=== PATIENT | female | born 1980 | race Two or more races ===

== ENCOUNTER 2016-10-06 06:47 | Inpatient (IN) | payer SELFPAY ==
[~2016-10-06] VITALS: Ht 175.3 cm; Wt 93.9 kg
[2016-10-06] MEDS ORDERED: IV RINGERS,LACTATED 1000ML 1,000 ML IV SCH ×2 (07:12→07:23)
[2016-10-06] MEDS ORDERED: HYDROMORPHONE 2 MG/ML VIAL. IV PRN (07:15)
[2016-10-06] MEDS ORDERED: MORPHINE SULFATE 2 MG/ML DISP.SYRIN. IV PRN (07:15)
[2016-10-06] MEDS ORDERED: ONDANSETRON PF 4 MG/2 ML VIAL. IV PRN ×2 (07:15→10:45)
[2016-10-06] MEDS ORDERED: FENTANYL PF 100 MCG/2 ML VIAL. IV PRN ×2 (07:15)
[2016-10-06] MEDS ORDERED: PROCHLORPERAZINE 10 MG/2 ML VIAL. IV PRN (07:15)
[2016-10-06] MEDS ORDERED: LIDOCAINE 1% 1 ML SYRINGE. ID PRN (07:15)
[2016-10-06] MEDS ORDERED: CITRIC ACID/SODIUM CITRATE 30 ML SOLUTION. PO ONE (08:30)
[2016-10-06 08:32] LABS: HEMATOCRIT 40.1 % (36.0-47.0); HEMOGLOBIN 13.9 g/dL (12.0-15.5); RED BLOOD COUNT 4.34 x10^6/uL (3.50-5.40); RED CELL DISTRIBUTION WIDTH 12.7 % (11.5-14.5); WHITE BLOOD COUNT 10.4 x10^3/uL (4.0-11.0)
[2016-10-06] MEDS ORDERED: ONDANSETRON PF 4 MG/2 ML VIAL. ONE (08:54)
[2016-10-06] MEDS ORDERED: FAMOTIDINE 20 MG/2 ML VIAL ONE (08:54)
[2016-10-06] MEDS ORDERED: METOCLOPRAMIDE HCL 10 MG/2 ML VIAL. ONE (08:54)
[2016-10-06] MEDS ORDERED: OXYTOCIN 10 UNIT/ML VIAL. ONE (08:55)
[2016-10-06] MEDS ORDERED: IV RINGERS,LACTATED 500ML 500 ML IV ONE (09:00)
[2016-10-06] MEDS ORDERED: IV RINGERS,LACTATED 1000ML 1,000 ML IV ONE (09:00)
[2016-10-06] MEDS ORDERED: CEFAZOLIN 2GM PREMIX 50 ML IV ONE (09:00)
[2016-10-06] MEDS ORDERED: FENTANYL PF 100 MCG/2 ML VIAL. ONE (09:01)
[2016-10-06] MEDS ORDERED: MORPHINE PF 5 MG/10 ML VIAL. ONE (09:01)
[2016-10-06 09:02] VITALS: BP 111/68
[2016-10-06] MEDS ORDERED: PHENYLEPHRINE in 0.9% NACL PF 1 MG/10 ML DISP.SYRIN. IV ONE (09:35)
[2016-10-06 09:53] LABS: BACTERIA,URINE 0 /HPF (0-FEW); BILIRUBIN,URINE NEGATIVE (NEG); GLUCOSE,URINE NEGATIVE (NEG); NITRITE,URINE NEGATIVE (NEG); PROTEIN,URINE 30 mg/dL (NEG-TRACE); RBC,URINE 0 /HPF (0-2); WBC,URINE 0 /HPF (0-4)
--- NOTE | 2016-10-06 10:35 | PDOC ---
BRIEF OPERATIVE NOTE Pre-Op Diagnosis TIUP Unknown uterine scar RLTC/S with BTL Post-Op Diagnosis Same Procedure Performed As above Surgeon Jojo Anesthesia Type: Regional Blood Loss 800cc Specimens Obtained R and L JESUS Zhao MD Oct 06, 2016 10:35
[2016-10-06] MEDS ORDERED: MMR per PROTOCOL. MC PRN (10:45)
[2016-10-06] MEDS ORDERED: OXYTOCIN 30 UNIT/500 ML PREMIX 500 ML IV PRN (10:45)
[2016-10-06] MEDS ORDERED: DIPHENHYDRAMINE ORAL ELIXIR 12.5 MG/5 ML. PO PRN (10:45)
[2016-10-06] MEDS ORDERED: MAGNESIUM HYDROXIDE 2,400 MG/30 ML ORAL.SUSP. PO PRN (10:45)
[2016-10-06] MEDS ORDERED: ZOLPIDEM 5 MG TABLET. PO PRN (10:45)
[2016-10-06] MEDS ORDERED: SIMETHICONE 80 MG TAB.CHEW PO PRN (10:45)
[2016-10-06] MEDS ORDERED: MAG HYDROX/ALUMINUM HYD/SIMETH 30 ML ORAL.SUSP PO PRN (10:45)
[2016-10-06] MEDS: IV RINGERS,LACTATED 1000ML 1,000 ML IV SCH ×2 (11:42→21:49)
[2016-10-06] MEDS: KETOROLAC TROMETHAMINE 30 MG/ML INJ. IV PRN ×2 (13:31→19:52)
[2016-10-06] MEDS: IBUPROFEN 800 MG TABLET. PO SCH ×2 (14:00→22:00)
[2016-10-06] MEDS: CEFAZOLIN SODIUM 1 GM in IV NORMAL SALINE 50ML 50 ML IV SCH ×2 (14:04→21:50)
[2016-10-06 14:30] VITALS: BP 103/49
[2016-10-06 15:15] VITALS: BP 112/69
[2016-10-06 17:30] VITALS: BP 114/61
[2016-10-06 19:30] VITALS: BP 105/53
[2016-10-06] MEDS: 0.9 % SODIUM CHLORIDE 10 ML DISP.SYRIN. IV PRN (19:53)
[2016-10-07] VITALS: BP 98/50
[2016-10-07] MEDS: KETOROLAC TROMETHAMINE 30 MG/ML INJ. IV PRN (02:24)
[2016-10-07] MEDS: 0.9 % SODIUM CHLORIDE 10 ML DISP.SYRIN. IV PRN (02:24)
[2016-10-07 04:00] VITALS: BP 95/55
[2016-10-07] MEDS: IBUPROFEN 800 MG TABLET. PO SCH ×3 (06:00→17:39)
[2016-10-07 06:09] LABS: BASO % 0 % (0-3); EOS % 1 % (0-3); HEMATOCRIT 34.7 % (36.0-47.0); HEMOGLOBIN 11.6 g/dL (12.0-15.5); LYMPH # 2.2 x10^3/uL (1.0-4.8); LYMPH % 20 % (24-48); MEAN CORPUSCULAR HEMOGLOBIN 31 pg (25-35); MEAN CORPUSCULAR HGB CONC 34 g/dL (31-37); MEAN CORPUSCULAR VOLUME 94 fL (79-100); MONO % 6 % (0-9); NEUT % 72 % (31-73); PLATELET COUNT 188 x10^3/uL (140-400); RED CELL DISTRIBUTION WIDTH 13.1 % (11.5-14.5); WHITE BLOOD COUNT 11.3 x10^3/uL (4.0-11.0)
[2016-10-07] MEDS: CEFAZOLIN SODIUM 1 GM in IV NORMAL SALINE 50ML 50 ML IV SCH (06:20)
[2016-10-07] MEDS: IV RINGERS,LACTATED 1000ML 1,000 ML IV SCH (06:21)
[2016-10-07] MEDS ORDERED: FERROUS SULFATE 325 MG TABLET. PO SCH (08:00)
[2016-10-07] MEDS: OXYCODONE/APAP 5/325 TABLET. PO PRN ×4 (09:21→23:17)
[2016-10-07 10:25] VITALS: BP 119/66
--- NOTE | 2016-10-07 12:47 | PDOC ---
Provider Note Provider Note Doing well VSS CBC - BMP 10/07/16 05:32 Dressing CDI FU in AM JESUS SPIVEY MD Oct 07, 2016 12:47
[2016-10-07] MEDS ORDERED: ACYCLOVIR 200 MG CAPSULE. PO SCH (14:00)
[2016-10-07] MEDS: ACYCLOVIR 5% TOPICAL OINT 5GM TUBE. TP SCH ×2 (14:00→23:15)
[2016-10-07] MEDS: ACYCLOVIR 200 MG CAPSULE. PO SCH ×2 (14:39→23:17)
[2016-10-07 20:45] VITALS: BP 105/73
[2016-10-07] MEDS: DOCUSATE SODIUM 100 MG CAPSULE. PO PRN (23:16)
[2016-10-08] MEDS: OXYCODONE/APAP 5/325 TABLET. PO PRN ×4 (02:58→22:37)
[2016-10-08] MEDS: IBUPROFEN 800 MG TABLET. PO SCH ×3 (02:58→22:36)
[2016-10-08] MEDS: ACYCLOVIR 5% TOPICAL OINT 5GM TUBE. TP SCH ×4 (06:00→22:38)
[2016-10-08 06:20] VITALS: BP 99/63
[2016-10-08] MEDS: DOCUSATE SODIUM 100 MG CAPSULE. PO PRN (09:08)
[2016-10-08] MEDS: ACYCLOVIR 200 MG CAPSULE. PO SCH ×3 (09:28→20:39)
[2016-10-08 11:59] VITALS: BP 101/68
--- NOTE | 2016-10-08 13:35 | PDOC ---
Provider Note Provider Note Improving Dressing CDI VSS Back Consistant with shingles CCC JESUS SPIVEY MD Oct 08, 2016 13:35
--- NOTE | 2016-10-08 18:04 | PATHOLOGY ---
PATHOLOGY REPORT * * * * * * * * FINAL DIAGNOSIS: A. 474 gram early term placenta of an estimated 38 weeks gestation with attached membranes and umbilical cord: - No significant pathologic abnormalities with loose nuchal cord (clinical). B. Fallopian tube, right tubal ligation: - Segment of fallopian tube confirmed, showing focal subserosal stromal decidualization. B. Fallopian tube, left tubal ligation: - Segment of fallopian tube confirmed, showing focal subserosal stromal decidualization and focal endosalpingiosis. (JPM:mgraj; d/t: 10/08/16) REPORT ELECTRONICALLY SIGNED BY: Alfonso Prince M.D. DATE/TIME: 10/08/2016 17:30 * * * * * * * * GROSS PATHOLOGY: A. Received in formalin labeled "Araseli Walsh and placenta," is a 474 g, 17.8 x 15.3 x 3.3 cm, discoid, [place] placenta with attached umbilical cord and membranes. The umbilical cord measures 63.5 cm in length and 1.2 cm in average diameter. It is white-barbosa, rubbery, trivascular, and has a paracentral insertion, 2.5 cm from the margin. The helical twisting pattern is increased. No umbilical strictures or knots are grossly identified. The membranes are pink-barbosa, thin, translucent, and have a marginal insertion. The point of membrane rupture cannot be determined. The surface is blue-walton with a normal vessel distribution and a minimal amount of subchorionic fibrin deposition. The maternal surface is grossly complete, with intact red-brown cotyledons, adherent blood clots, and minimal calcifications. Sectioning reveals dark red and spongy parenchyma. No masses or lesions are grossly identified. [employer] sections are submitted as follows: A1 umbilical cord and surface vessels A2 membrane roll A3-A4 full-thickness sections of placenta B. Received in formalin labeled "Araseli Walsh and right fallopian tube," is a pink-barbosa and non-fimbriated segment of fallopian tube measuring 1.8 cm in length and 0.7 cm in diameter. The tissue is submitted representatively in cassette B1. C. Received in formalin labeled "Araseli Walsh and left fallopian tube," is a pink-barbosa and non-fimbriated segment of fallopian tube measuring 2.2 cm in length and 0.6 cm in diameter. The tissue is submitted representatively in cassette C1. (TTL; 10/07/2016) INITIAL CPT CODE(S): A; 64750 B; 25460 C; 00622 Professional services [place] [address] Technical services performed by [facility] at [address] [place] [address], [address], [place] [address]. SPECIMEN(S) RECEIVED: A.Placenta and cord B.Right fallopian tube C.Left fallopian tube CLINICAL HISTORY: Repeat with bilateral tubal ligation, EDC 10/22/16, 7lb 15oz male @ 0955 on 10/06/16, apgars 8-9, nuchal cord around neck x2-loose, , umbilical cord inserted on edge of placenta PATIENT: ARASELI BLEVINS /AGE: 611/30/1980 (Age: 35) PATIENT #: [id number] ALT CASE #: SPECIMEN COLLECTION DATE: 10/06/2016 SPECIMEN RECEIVED DATE: 10/06/2016 [facility] - [address] [place] [address] - PHONE: [phone] * * * END OF REPORT * * *
[2016-10-08 18:46] VITALS: BP 110/68
[2016-10-08 20:50] VITALS: BP 113/73
[2016-10-09 03:35] VITALS: BP 100/59
[2016-10-09] MEDS: IBUPROFEN 800 MG TABLET. PO SCH (06:46)
[2016-10-09] MEDS: OXYCODONE/APAP 5/325 TABLET. PO PRN (06:47)
[2016-10-09] MEDS: DOCUSATE SODIUM 100 MG CAPSULE. PO PRN (08:46)
[2016-10-09] MEDS: ACYCLOVIR 200 MG CAPSULE. PO SCH (08:46)
--- NOTE | 2016-10-09 10:15 | PDOC3 ---
OB DISCHARGE SUMMARY DATE OF ADMISSION: 10/06/16 DATE OF DISCHARGE: 10/09/16 REASON FOR ADMISSION: section PROCEDURES: Ultrasound INTRAPARTUM PROCEDURES: : Low Cerv Trans, Tubal Ligation PROCEDURES: None OPERATIONS: None (Shingles) PROBLEM LIST AT DISCHARGE Problems Medical Problems: (1) Status: Acute DISCHARGE DIAGNOSIS: Term Delivered DISCHARGE INFORMATION: Activity, Diet HOSPITAL COURSE Complicated by shingles CONDITION AT DISCHARGE Stable JESUS SPIVEY MD Oct 09, 2016 10:15
[2016-10-09] MEDS ORDERED: NAPR500T3 PO (10:18)
[2016-10-09] MEDS ORDERED: OXYC-323 PO (10:18)
[2016-10-09] MEDS ORDERED: ACYC400T PO (10:18)
--- NOTE | 2016-10-10 00:18 | OP ---
DATE OF SURGERY: 10/06/2016 PREOPERATIVE DIAGNOSES: Term intrauterine , desires repeat with bilateral tubal ligation. POSTOPERATIVE DIAGNOSES: Term intrauterine , desires repeat with bilateral tubal ligation. PROCEDURE: Repeat low transverse , bilateral tubal ligation. SURGEON: Stevenson Uribe M.D. GLASS LINED TANK REPAIRER: None. ANESTHESIA: Regional. ESTIMATED BLOOD LOSS: 800 mL. FLUIDS: Crystalloid. SPECIMENS: Right and left oviducts. COMPLICATIONS: None. CONDITION: Stable. FINDINGS: Normal infant, Apgars 8, 9 and 9, weight is pending. DESCRIPTION OF PROCEDURE: Risks, benefits, indications, alternatives discussed in detail with the patient. The patient was brought to the OR theater, placed in the supine position with left lateral uterine displacement. After adequate regional anesthesia, the patient prepped and draped in usual sterile manner. Previous Pfannenstiel incision was taken out in total with the scalpel and Bovie cautery. Subcutaneous tissues taken down with Bovie cautery. Rectus fascia was nicked in midline and extended laterally in each direction with Bovie cautery. Upper edge of rectus fascia was grasped times 2 with Lalo clamps, both bluntly and sharply with scalpel blade and Bovie cautery. The same procedure was carried out on lower edge of rectus fascia. Rectus muscle split in midline and extended superiorly and inferiorly with Bovie cautery. Parietal peritoneum was entered bluntly and extended superiorly and inferiorly with Bovie cautery. Eh retractor was placed. Low transverse hysterotomy incision was made sharply with the scalpel, extended laterally upwardly with gloved hand. Membranes ruptured with Allis clamp. Clear fluid was noted. Gloved hand was placed within the lower uterine segment, used to elevate head with fundal pressure from the general office assistant. was delivered on anterior abdominal wall. cried spontaneously and moved all extremities. Cord was doubly clamped, transected between 2 clamps, and infant was handed to nursing care in attendance. Cord blood samples were taken, placenta delivered spontaneously intact, 3-vessel cord. Uterus was wiped, clean of any adherent membranes. Uterus was extricated on to the anterior abdominal wall, wrapped with wet laparotomy sponge. The low transverse hysterotomy incision reapproximated with 0 Monocryl in a running locking manner, imbricated with 0 Monocryl in vertical mattress stitch fashion. Bladder flap was reapproximated with 3-0 Vicryl in a running manner. Good hemostasis was assured. Attention was then turned to the right tube. Right tube was followed to its fimbriated end approximately to mid ampullary portion. Window was created in the mesosalpinx, 2-0 plain ties were used to doubly ligate the tube approximately 2-3 cm apart. The tube was transected between these two ligatures and handed off the operative field and sent for path. Same procedure was carried on the opposite side. The uterus was placed back within the pelvic cavity. Gutters were inspected and noted to be free of any blood or debris. Lower uterine segment was inspected and noted to be free of any blood or debris. Rectus muscle and parietal peritoneum was reapproximated in total with 3-0 Vicryl in a running manner. Rectus muscle had some oozing, was controlled with Bovie cautery. Rectus fascia was reapproximated with 0 PDS in a running manner. Subcutaneous tissue was irrigated copiously with warm normal saline. Sumit's fascia was reapproximated with 2-0 plain in a running manner. Skin was reapproximated with Insorb herminio. Sponge, needle and instrument counts were correct times 2 per nursing staff. STEVENSON URIBE MD DR: NIKOLAI/paulette JOB#: [id number] / [id number]
== END 2016-10-09 14:58 | disposition home or self-care (01) | DRG 765 ==
LOC: 3 SO LND 06:47 → 3 NORTH 14:45
PROVIDERS: ADMIT Specialist; ATTEND Specialist
PROC: 0UB70ZZ Excision of Bilateral Fallopian Tubes, Open Approach (ICD-10-PCS; principal; 2016-10-07)
PROC: 10D00Z1 Extraction of Products of Conception, Low, Open Approach (ICD-10-PCS; 2016-10-07)
DX: O34.211 Maternal care for low transverse scar from previous cesarean delivery (principal); O98.52 Other viral diseases complicating childbirth; B02.9 Zoster without complications; Z37.0 Single live birth; Z30.2 Encounter for sterilization; Z3A.38 38 weeks gestation of pregnancy
CPT/HCPCS: 36415; 81001; 85027; 86593; 86850; 86900; 86901; 88302; 88307; J0690; J1885; J2270; J2370; J2405; J2590; J2765; J3010; J7120; S0028